=== PATIENT | female | born 1950 | race Caucasian/White ===

== ENCOUNTER → 2021-01-06 | Outpatient (CLI) | payer BC | LOC: KOH-I 08:05 | DX: M16.12 Unilateral primary osteoarthritis, left hip (principal) | CPT/HCPCS: 73721; J3430 ==

== ENCOUNTER → 2021-04-19 | Outpatient (CLI) | payer BC ==
[~2021-04-19] MED LIST: CALCIUM 600 +1 EA10 PO; FISH OIL 1,201200 MG PO; MULTIVITAMIN W1 EAC1 PO; OMEPRAZOLE40 MG PO; TYLENOL EXTRA500 MG PO
[2021-04-19 11:47] LABS: HEMOGLOBIN 13.5 gm/dl (12.3-15.3); RED BLOOD COUNT 4.44 M/UL (4.00-5.10); WHITE BLOOD COUNT 4.9 K/UL (4.5-11.0)
[2021-04-19 12:03] LABS: BUN/CREATININE RATIO 33 (0-10)
== END ==
LOC: OPSV2 04-14 11:00 → EDSTATUS 10:30 → OPSV2 10:58
PROVIDERS: Orthopaedic Surgery
DX: Z01.818 Encounter for other preprocedural examination (principal); M16.12 Unilateral primary osteoarthritis, left hip; E78.5 Hyperlipidemia, unspecified
CPT/HCPCS: 36415; 71046; 80048; 81001; 85027; 87081; 93005

== ENCOUNTER → 2021-05-02 | Outpatient (CLI) | payer BC ==
[~2021-05-02] MED LIST changes: +ELIQUIS2.5 MG PO; +HYDROCODON-ACE1 EAC4 PO; +MULTIVITAMIN1 EACH PO
[2021-05-02 11:15] LABS: BUN/CREATININE RATIO 22 (0-10)
== END ==
LOC: LAB 10:24
PROVIDERS: Orthopaedic Surgery
DX: Z01.812 Encounter for preprocedural laboratory examination (principal)
CPT/HCPCS: 80048; 86850; 86900; 86901

== ENCOUNTER 2021-05-03 07:49 | Observation (INO) | payer BC, MEDICARE ==
[~2021-05-03] VITALS: Ht 152.4 cm; Wt 63.5 kg
[~2021-05-03 07:49] MED LIST changes: -ELIQUIS2.5 MG PO; -HYDROCODON-ACE1 EAC4 PO; -MULTIVITAMIN1 EACH PO
[2021-05-03] MEDS ORDERED: HYDROCODON-ACE1 EAC4 PO (16:28)
[2021-05-03] MEDS ORDERED: MULTIVITAMIN1 EACH PO (18:08)
[2021-05-04 06:31] LABS: HEMOGLOBIN 10.4 gm/dl (12.3-15.3); RED BLOOD COUNT 3.48 M/UL (4.00-5.10); WHITE BLOOD COUNT 9.7 K/UL (4.5-11.0)
[2021-05-04 06:33] LABS: BUN/CREATININE RATIO 24 (0-10)
--- NOTE | 2021-05-04 13:31 | NUR ---
GOT PATIENT UP FROM CHAIR AT [facility] TO GO BACK TO BED. CHECKED BLOOD PRESSURE UPON STANDING PATIENTS BLOOD PRESSURE WAS 97/81. SHE EXPERIENCED NO DIZZYNESS OR LIGHTHEADEDNESS. WILL CONTINUE TO MONITOR.
--- NOTE | 2021-05-04 19:00 | NUR ---
PT'S O2 SATURATION ON ROOM AIR IS 88%. PT'S O2 SATURATION ON 2L NC IS 96%.
[2021-05-05 06:44] LABS: WHITE BLOOD COUNT 7.6 K/UL (4.5-11.0)
[2021-05-05 06:49] LABS: HEMOGLOBIN 8.3 gm/dl (12.3-15.3); RED BLOOD COUNT 2.76 M/UL (4.00-5.10)
[2021-05-05 07:15] LABS: BUN/CREATININE RATIO 20 (0-10)
--- NOTE | 2021-05-05 11:06 | NUR ---
PATIENT HAS BEEN HYPOXIC THIS AM, ESPECIALLY WHEN WORKING WITH PT. ZACH SANTA ROUNDING AND NOTIFIED, ORDERED A HOSPITALIST CONSULT AND TELE WITH POX. ONCE TELE APPLIED, PATIENT NOTED TO HAVE EPISODE OF AFIB. ZACH SANTA AND JEANNE HARRIS BOTH NOTIFIED OF THIS EPISODE. JEANNE ALSO NOTIFIED OF THE CONSULT FOR MEDICAL MANAGEMENT. PATIENT REMAINED HYPOXIC WITH POX READING SATS OF HIGH 80S, SO 02 AT 2 LITERS PER NASAL CANNULA PLACED BACK ON PATIENT. WCTM CLOSELY FOR ANY CHANGES OR ISSUES. PATIENT CURRENTLY TACHYCARDIC WITH A HR BETWEEN 100-112 AND POX AT 100% ON SUPPLEMENTAL 02.
[2021-05-06 06:47] LABS: HEMOGLOBIN 7.5 gm/dl (12.3-15.3); RED BLOOD COUNT 2.51 M/UL (4.00-5.10); WHITE BLOOD COUNT 6.8 K/UL (4.5-11.0)
[2021-05-06 07:01] LABS: BUN/CREATININE RATIO 20 (0-10)
--- NOTE | 2021-05-06 13:27 | NUR ---
PT ROOM AIR SATS 87%
--- NOTE | 2021-05-06 19:08 | NUR ---
pt encouraged to call for assistance to the bathroom, she has gotten up x2 on her own using her walker. also encouraged to use incentive spirometer and deep breath.
[2021-05-07 07:11] LABS: HEMOGLOBIN 7.7 gm/dl (12.3-15.3); RED BLOOD COUNT 2.57 M/UL (4.00-5.10); WHITE BLOOD COUNT 5.7 K/UL (4.5-11.0)
[2021-05-07 07:17] LABS: BUN/CREATININE RATIO 16 (0-10)
--- NOTE | 2021-05-07 12:13 | NUR ---
05/07/21 1200 ambulated in room without oxygen pox 78% but when she sat down it was 90%
[2021-05-07] MEDS ORDERED: ELIQUIS2.5 MG PO (16:04)
== END 2021-05-07 17:02 | disposition home or self-care (01) ==
LOC: M/S 07:49 → OR 07:49 → EDSTATUS 11:15 → M/S 16:59 → OR 05-05 11:53 → M/S 05-05 11:53
PROVIDERS: Internal Medicine; ADMIT Orthopaedic Surgery
DX: M16.12 Unilateral primary osteoarthritis, left hip (principal); G89.29 Other chronic pain; K21.9 Gastro-esophageal reflux disease without esophagitis; E78.5 Hyperlipidemia, unspecified; Z79.899 Other long term (current) drug therapy
CPT/HCPCS: 36415; 36600; 71045; 72170; 73502; 76000; 80048; 82803; 83735; 83880; 85025; 85379; 93005; 97110-GP-CQ; 97116-GP-CQ; 97161; 97165; 97530-GP-CQ; 97535; C1776; G0378; J0592; J0690; J1100; J2001; J2250; J2370; J2405; J2704; J2710; J2795; J3010; J3370; J7050; J7120; Q9967